=== PATIENT | female | born 1960 | race Caucasian/White ===

== ENCOUNTER 2018-07-16 05:26 | Day surgery (SDC) | payer OTHER ==
[~2018-07-16] VITALS: Ht 162.6 cm; Wt 60.8 kg
--- NOTE | ~2018-07-16 | PATH ---
[facility] [address] [place] [address] PATHOLOGY RPT PROCEDURE Name: SHERLEY NICOLAS Room #: DEP [facility] M.R.#: [id number] Admission: 07/16/18 Date of : 58 Discharge: 07/16/18 Report #: [id number] Path Case #: [id number] [facility] Accession Number: [id number] . 01 Material submitted: . EXPOSED RIGHT ORBITAL IMPLANT . 01 Clinical history: . Exposed orbital implant right Specimen is labeled gross only because Dr. Abdalla says it is not tissue but is hard and could break pathology blade . 02 Diagnosis: Implant, exposed right orbital implant, removal (gross examination only): - 1.6 cm spherical object, compatible with an implant. . (IUV:mml; 07/17/18) QLM/07/17/2018 . 02 Electronically signed: . Juliann Maurer MD, Pathologist NPI- [id number] . 01 Gross description: . The specimen is received in formalin, labeled "Weston, Sherley, exposed right orbital implant" and consists of a spherical hong-brown foreign object measuring 1.6 x 1.6 x 1.5 cm. A gross photo is taken and no sections are submitted. (SDY; 07/16/2018) SYU/SYU . 02 Pathologist provided ICD-10: T85.390A . 02 CPT . 023311 Specimen Comment: A courtesy copy of this report has been sent to Specimen Comment: [phone], . Specimen Comment: Report sent to and Performed at: [address], [place] [id number] MD Garret Garcia MD Phone: [phone] Performed at: [address] [id number] MD Juliann Maurer MD Phone: [phone]
--- NOTE | ~2018-07-16 | O ---
[facility] [place] [address] OPERATIVE REPORT Name: SHERLEY NICOLAS Room #: 150-8 [facility] M..#: [id number] Admission: 07/16/18 Attend Phys: Francois Abdalla MD Discharge: Date of : 58 Report #: [id number] THIS REPORT FOR: //name// CC: Ondina Rolle MD [facility] physician/PCP Mr. Siva Au Bid Writer Francois Abdalla DATE OF SERVICE: 07/16/2018 PREOPERATIVE DIAGNOSIS: Exposed right orbital implant with conjunctival scarring. POSTOPERATIVE DIAGNOSIS: Exposed right orbital implant with conjunctival scarring. PROCEDURE: Removal of right exposed orbital implant with conjunctivoplasty repair. SURGEON: Francois Abdalla MD SIGNALS COLLECTION TECHNICIAN: None. ANESTHESIA: General. COMPLICATIONS: None. INDICATIONS FOR SURGERY: This pleasant 57-year-old bilaterally anophthalmic patient presents with a massive exposure of her right Medpor implant. There was extensive conjunctival associated with the exposure as it is evidently been going on for quite some time. She presents today for removal of the implant with repair of the subsequent defect. Informed consent was obtained to include but not limited to potential risk for bleeding, infection, and the need for further potential surgery or treatment, specifically a secondary orbital implant. DESCRIPTION OF PROCEDURE: The patient was taken to the operating room where general anesthesia was administered. The right socket was then anesthetized with Xylocaine with epinephrine mixed with Marcaine and Wydase. The patient was subsequently prepped and draped in the usual sterile fashion. A lid speculum was placed on the right eye. Utilizing a cutting current, an incision was then made around the base of the conjunctiva, which was basically at the equator of the Medpor implant. The dissection was then carried back into the socket utilizing gentle nhkm-jemf-tunz dissection ensuring that as much tissue was retained as possible. A penetrating towel clamp was then used to rotate the sphere to allow better access posteriorly. The sphere was subsequently removed [facility] [address] [place] [address] OPERATIVE REPORT Name: SHERLEY NICOLAS Room #: 150-8 [facility]#: [id number] Admission: 07/16/18 Attend Phys: Francois Abdalla MD Discharge: Date of : 58 Report #: [id number] en bloc. Hemostasis was achieved with diligent pinpoint monopolar cautery throughout the case. Some additional bleeding occurred at the end that was controlled in a similar fashion. This left a wide exposure of central conjunctiva, which was deficient. A conjunctivoplasty was then designed from inferomedially to be rotated superotemporally. Hemostasis was then re-achieved. The conjunctival flap was then elevated and secured with multiple interrupted 6-0 chromic sutures that were reapproximated loosely. Erythromycin ophthalmic ointment was then placed in the socket followed by medium conformer. The eye was then patched with the Telfa pad followed by 3 eye pads, which were held in place with silk tape and Mastisol. The patient was subsequently transported to the recovery area having tolerated the procedure well with no anesthetic or operative complications being noted. By: [id number] Francois Abdalla MD /nt
[~2018-07-16 05:26] MED LIST: ACETAMINOPHEN650 M5 PO; ALENDRONATE SOD70 MG PO; ANTACID SUSPEN355 M1 PO; ASPIR 8181 MG PO; ASPIRIN325 PO; ATORVASTATIN CA40 MG PO; CALAMINE LOTIO177 M1 TOP; CEPACOL SORE T1 EAC7 PO; COLACE100 MG PO; DOCUSATE SODIU100 MG PO; ESZOPICLONE3 MG PO; FOSAMAX 70 MG T70 MG PO; GABAPENTIN800 M1 PO; KEPPRA 500 MG500 MG PO; LORAZEPAM 1 MG T1 M1 PO; NEURONTIN600 MG PO; PRAZOSIN HCL1 MG PO; PRAZOSIN HCL2 MG PO; QUETIAPINE FUM300 MG PO; TYLENOL325 MG PO; VENLAFAXINE HC150 M1 PO
[2018-07-16 07:49] VITALS: BP 104/61
== END 2018-07-16 10:05 | disposition home or self-care (01) ==
LOC: TBA 05:26 → OR 05:26
DX: T85.398A Other mechanical complication of other ocular prosthetic devices, implants and grafts, initial encounter (principal); H11.241 Scarring of conjunctiva, right eye; E78.5 Hyperlipidemia, unspecified; F32.9 Major depressive disorder, single episode, unspecified; F41.9 Anxiety disorder, unspecified; R51 Headache; K21.9 Gastro-esophageal reflux disease without esophagitis; Z98.51 Tubal ligation status; Z79.899 Other long term (current) drug therapy; Z98.890 Other specified postprocedural states; Z79.82 Long term (current) use of aspirin; Y83.8 Other surgical procedures as the cause of abnormal reaction of the patient, or of later complication, without mention of misadventure at the time of the procedure
CPT/HCPCS: 50010; 50101; 50386; 50398; 51636; 51854; 56531; 62110; 62900; 64037; 70005